=== PATIENT | male | born 1990 | race Caucasian/White ===

== ENCOUNTER 2018-05-08 18:55 | Emergency (ER) | payer OTHER ==
[~2018-05-08] VITALS: Ht 188 cm; Wt 115.3 kg
[2018-05-08 19:04] VITALS: TEMP 36.9; Ht 188 cm; Wt 115.3 kg
[2018-05-08] MEDS ORDERED: PROPARACAINE HCL 0.5% OP SOLN 15 ML BTL OP STA (19:40)
--- NOTE | 2018-05-08 20:29 | EMERGENCY ROOM VISIT NOTE ---
History First contact with patient: 19:35 Chief Complaint: EYE ASSESSMENT Stated Complaint: SOMETHING STUCK IN EYE/WC History of Present Illness The patient is a 27 year old male who presents to the Emergency Room via private vehicle accompanied by female with complaints of "something stuck in eye ". The patient states that earlier today around 10 AM he was at work, and while on the [employer] field he was concerned it may be a rubber BB from the [employer] struck him in the right eye. He notes that throughout the day he felt something was stuck in the eye and then looked in the mirror and noticed that there was a small dark speck at the limbus of the cornea medially. He states that it is not moved. He tried irrigating the eye without relief. His pain is a 1/10. He denies visual changes. Tetanus is up-to-date. Review of Systems A complete 6-point Review of Systems was discussed with the patient, with pertinent positives and negatives listed in the History of Present Illness. All remaining Review of Systems questions can be considered negative unless otherwise specified. Past Medical/Surgical History No pertinent. Family History No pertinent. Social History Smoking Status: Never Smoker Patient is currently employed and lives locally. Current/Historical Medications No Active Prescriptions or Reported Meds Physical Exam Vital Signs Date Time Temp Pulse Resp B/P (MAP) Pulse Ox O2 Delivery O2 Flow Rate FiO2 05/08/18 20:41 92 18 128/78 100 05/08/18 19:04 36.9 94 18 133/84 96 Room Air Right Eye Acuity: 20/15 Left Eye Acuity: 20/15 Physical Exam VITAL SIGNS - Vital signs and nursing notes were reviewed. Stable. Afebrile. GENERAL -27-year-old male appearing his stated age. Communicates well with provider and answers questions appropriately. HEAD - Normocephalic, Atraumatic. EYES - PERRL with EOMI bilaterally. Sclera without noticeable foreign body or excoriations. No injection noted in the right eye. Without subconjunctival hemorrhage. Slit lamp examination performed as further described. Without magnification, a small dark foreign body was appreciated at the medial most aspect of the patient's right corneal limbus. No surrounding deformity noted. EARS - No deformities of external structures noted on gross examination bilaterally. MOUTH/OROPHARYNX - Without perioral cyanosis. Slit Lamp Examination was performed of the right eye(s). Alcaine drops were applied to the affected eye(s) for proper anesthetization. The affected eye(s) were stained with Fluorescein stain to precipitate adequate visualization of any conjunctival/scleral excoriations or ulcers. The patient's face was comfortably rested on the chin guard of the slit lamp apparatus. The lights were dimmed and the affected eye(s) were thoroughly examined under microscopy using the blue light. Minimal punctate uptake was present medial aspect of the limbus. Additionally, the eye(s) were examined under microscopy using the regular light. Close examination revealed a small punctate foreign body at the medial aspect of the right corneal limbus. Patient tolerated the procedure well and no complications were met. Medical Decision & Procedures Medications Administered Medications (Trade) Dose Ordered Sig/Alan Route Start Time Stop Time Status Last Admin Dose Admin Ciprofloxacin HCl (Ciprofloxacin 0.3% Op Soln) 1 drops NOW ONCE OPR 05/08/18 20:30 05/08/18 20:31 DC 05/08/18 20:40 1 DROPS Medical Decision Patient was seen and evaluated as above in room D7. Review was performed of nursing notes and vital signs. After obtaining a thorough history and physical examination the above work up was performed. He presents today with right eye discomfort. I was able to appreciate a small dark retained foreign body at the medial most aspect of the patient's right corneal limbus with the naked eye, and this was better appreciated than with microscope slit-lamp examination. I was able to moisten a cotton tip applicator with the Alcaine and this was removed without difficulty. This was done via gently touching this to the eye. I then restained the eye and there was a small punctate corneal abrasion at this region. Negative Carlos sign. No evidence of globe injury. No evidence of retained foreign body. He will be placed upon Ciloxan eyedrops and is to follow with ophthalmology to document resolution and improvement or return with worsening. The patient was educated upon management, had questions answered prior to discharge, and was discharged home in good condition. In the evaluation and treatment of this patient, the following differential diagnoses were considered: Corneal Abrasion, Conjunctivitis, Eye Contusion, Globe Injury, Orbital Floor Injury (Blowout Fracture), Corneal Ulcer, Keratitis , Herpes Zoster Opthalmic, Blepharitis, Orbital Cellulitis, Iritis, Scleritis/ Episcleritis, Uveitis, Temporal Arteritis, Subconjunctival Hemorrhage. Impression Primary Impression: Eye foreign body Departure Information Dispostion Home / Self-Care Condition GOOD Prescriptions No Active Prescriptions or Reported Meds Referrals Leonard Parker D.O. (PCP) Bishnu Resendiz D.O. Patient Instructions My [facility] Additional Instructions You have been treated in the Emergency Department today for your Corneal Abrasion. You have been prescribed Ciloxan eye drops. This is an antibiotic which will help to prevent an infection from developing in your affected eye. You should use 2 drops in the affected eye every 2 hours while awake for the first 2 days, then every 4 hours for the remaining 5 days. This is a total of a 7-day course for these antibiotic eye drops. For pain control, you can use the following [id number] medicines (if >12 yo): - Regular strength (325mg/tab) Tylenol (acetaminophen) 2 tabs every 4-6 hours as needed. Do not exceed 12 tablets in a 24 hour period. Avoid taking more than 3 grams (3000 mg) of Tylenol per day. This includes any other sources of acetaminophen you may take on a regular basis. - Regular strength (200 mg/tab) Advil (ibuprofen) 1-2 tabs every 4-6 hours as needed. Do not exceed a dose of 3200 mg per day. You should relax in a quiet, dark place for the rest of the day. You should wear sunglasses while outside for the next few days until your eyes are not as sensitive to the light. You should schedule a follow-up appointment in 2-3 days with your Primary Care Provider or established Eye Doctor (Therapist Rrt) for further evaluation and treatment of your Corneal Abrasion. Return to the Emergency Department if your current symptoms worsen despite treatment course outlined above, or if you develop any of the following symptoms : intractable pain, visual disturbances, loss of vision, increased redness, swelling, drainage, or if you develop a fever.
[2018-05-08] MEDS ORDERED: CIPROFLOXACIN HCL 0.3% OP SOLN 2.5 ML BTL OPR ONE (20:30)
[2018-05-08 20:41] VITALS: BP 128/78; PULSE 92; O2SAT 100
== END 2018-05-08 20:42 | disposition home or self-care (01) ==
LOC: C.EDB 18:56 → C.EDD 20:42
DX: T15.01XA Foreign body in cornea, right eye, initial encounter (principal); X58.XXXA Exposure to other specified factors, initial encounter; Y99.0 Civilian activity done for income or pay; Y92.89 Other specified places as the place of occurrence of the external cause